=== PATIENT | female | born 1975 | race Caucasian/White ===

== ENCOUNTER → 2018-02-07 | Outpatient (CLI) | payer MEDICARE, MEDICAID ==
[~2018-02-07] MED LIST: AMOX500T2 PO; CPR500T PO; CYCL10TA9 PO; DIAZ-345 PO; HYDR-34 PO; HYDR25CA5 PO; LORA0.5T PO; METH4TAB PO; NAPR-243 PO; PRD20T PO; TRM50T PO
[2018-02-07 10:20] LABS: BASOPHILS % (AUTO) 0 % (0-10); EOSINOPHILS # (AUTO) 0.3 10^3/uL (0.0-0.3); EOSINOPHILS % (AUTO) 3 % (0-10); HEMATOCRIT 43 % (35-52); HEMOGLOBIN 14.8 G/DL (11.5-16.0); LYMPHOCYTES # (AUTO) 2.7 X 10^3 (1.0-4.0); LYMPHOCYTES % (AUTO) 29 % (12-44); MEAN CORPUSCULAR HEMOGLOBIN 31 PG (25-34); MEAN CORPUSCULAR HGB CONC 34 G/DL (32-36); MEAN CORPUSCULAR VOLUME 91 FL (80-99); MEAN PLATELET VOLUME 10.7 FL (7.4-10.4); MONOCYTES # (AUTO) 0.9 X 10^3 (0.0-1.0); MONOCYTES % (AUTO) 10 % (0-12); NEUTROPHILS # (AUTO) 5.5 X 10^3 (1.8-7.8); NEUTROPHILS % (AUTO) 58 % (42-75); PLATELET COUNT 273 10^3/uL (130-400); RED BLOOD COUNT 4.75 10^6/uL (4.35-5.85); RED CELL DISTRIBUTION WIDTH 11.9 % (10.0-14.5); WHITE BLOOD COUNT 9.5 10^3/uL (4.3-11.0)
[2018-02-07 10:40] LABS: ALANINE AMINOTRANSFERASE 22 U/L (0-55); ALBUMIN 4.3 GM/DL (3.2-4.5); ALKALINE PHOSPHATASE 61 U/L (40-136); BILIRUBIN,TOTAL 0.5 MG/DL (0.1-1.0); BUN/CREATININE RATIO 17; CALCIUM 9.4 MG/DL (8.5-10.1); CARBON DIOXIDE 29 MMOL/L (21-32); CHLORIDE 107 MMOL/L (98-107); CHOLESTEROL 216 MG/DL (< 200); CREATININE SERUM 0.75 MG/DL (0.60-1.30); GFR ESTIMATED > 60; GLUCOSE 92 MG/DL (70-105); HDL CHOLESTEROL 65 MG/DL (40-60); POTASSIUM 4.2 MMOL/L (3.6-5.0); SODIUM 140 MMOL/L (135-145); TOTAL PROTEIN 6.9 GM/DL (6.4-8.2); TRIGLYCERIDES 148 MG/DL (<150); VLDL CHOLESTEROL 30 MG/DL (5-40)
== END ==
LOC: LAB 09:56
PROVIDERS: ATTEND Registered Nurse
DX: M54.5 Low back pain (principal); G89.29 Other chronic pain; F32.9 Major depressive disorder, single episode, unspecified; K52.9 Noninfective gastroenteritis and colitis, unspecified; G62.9 Polyneuropathy, unspecified; M19.91 Primary osteoarthritis, unspecified site; F41.9 Anxiety disorder, unspecified; Z72.0 Tobacco use
CPT/HCPCS: 36415; 80053; 80061; 84443; 85025

== ENCOUNTER → 2018-12-01 | Outpatient (CLI) | payer MEDICARE, MEDICAID ==
[2018-12-01 11:10] LABS: BASOPHILS % (AUTO) 1 % (0-10); EOSINOPHILS # (AUTO) 0.2 10^3/uL (0.0-0.3); EOSINOPHILS % (AUTO) 2 % (0-10); HEMATOCRIT 42 % (35-52); HEMOGLOBIN 13.9 G/DL (11.5-16.0); LYMPHOCYTES # (AUTO) 2.5 X 10^3 (1.0-4.0); LYMPHOCYTES % (AUTO) 33 % (12-44); MEAN CORPUSCULAR HEMOGLOBIN 30 PG (25-34); MEAN CORPUSCULAR HGB CONC 33 G/DL (32-36); MEAN CORPUSCULAR VOLUME 91 FL (80-99); MEAN PLATELET VOLUME 10.6 FL (7.4-10.4); MONOCYTES # (AUTO) 0.6 X 10^3 (0.0-1.0); MONOCYTES % (AUTO) 8 % (0-12); NEUTROPHILS # (AUTO) 4.1 X 10^3 (1.8-7.8); NEUTROPHILS % (AUTO) 56 % (42-75); PLATELET COUNT 299 10^3/uL (130-400); RED BLOOD COUNT 4.59 10^6/uL (4.35-5.85); WHITE BLOOD COUNT 7.4 10^3/uL (4.3-11.0)
[2018-12-01 11:29] LABS: ALANINE AMINOTRANSFERASE 23 U/L (0-55); ALBUMIN 4.3 GM/DL (3.2-4.5); ALKALINE PHOSPHATASE 66 U/L (40-136); BILIRUBIN,TOTAL 0.4 MG/DL (0.1-1.0); BUN/CREATININE RATIO 7; CALCIUM 9.4 MG/DL (8.5-10.1); CARBON DIOXIDE 26 MMOL/L (21-32); CHLORIDE 106 MMOL/L (98-107); CHOLESTEROL 199 MG/DL (< 200); CREATININE SERUM 0.84 MG/DL (0.60-1.30); GFR ESTIMATED > 60; GLUCOSE 93 MG/DL (70-105); HDL CHOLESTEROL 54 MG/DL (40-60); POTASSIUM 4.3 MMOL/L (3.6-5.0); SODIUM 141 MMOL/L (135-145); TRIGLYCERIDES 130 MG/DL (<150); VLDL CHOLESTEROL 26 MG/DL (5-40)
== END ==
LOC: LAB 10:35
PROVIDERS: ATTEND Registered Nurse
DX: E78.5 Hyperlipidemia, unspecified (principal); M54.5 Low back pain; M79.2 Neuralgia and neuritis, unspecified; M25.539 Pain in unspecified wrist; M79.672 Pain in left foot; M79.671 Pain in right foot; R63.5 Abnormal weight gain; R06.2 Wheezing; Z72.0 Tobacco use
CPT/HCPCS: 36415; 80053; 80061; 84443; 85025; 86038; 86430

== ENCOUNTER 2021-08-03 19:27 | Emergency (ER) | payer MEDICARE, MEDICAID ==
[~2021-08-03] VITALS: Ht 147.3 cm; Wt 40.0 kg
--- NOTE | 2021-08-03 19:49 | ED Fall/Injury ---
General Stated Complaint: RIGHT SIDE PAIN Source: patient Exam Limitations: no limitations History of Present Illness Date Seen by Provider: Aug 03, 2021 Time Seen by Provider: 19:40 Initial Comments Patient to the ER by private conveyance from home with chief complaint of 2 days ago she was up on top of her washing machine trying to take care of her mouse problem when she lost her balance fell and hit her right ribs against the corner of the wash machine. She now has significant pain and difficulty taking deep breaths or moving. No previous injuries. She does smoke about half a pack cigarettes a day on average. No history of lung disease. She took naproxen 1 hour or 2 ago. No nausea loss of consciousness head injury. No blood thinners. Allergies and Home Medications Allergies Coded Allergies: bupropion (Unverified Allergy, Unknown, 09/18/15) clavulanic acid (Verified Allergy, Unknown, NAUSEA, 09/18/15) potassium clavulanate (Unverified Adverse Reaction, Intermediate, N/V, 04/26/12) erythromycin base (Unverified Adverse Reaction, Unknown, NAUSEA, 09/18/15) Patient Home Medication List Home Medication List Reviewed: Yes Amoxicillin (Amoxicillin) 500 Mg Tablet, 1,000 MG PO BID Prescribed by: SUJATHA MARTINEZ on 09/18/15 1349 Hydroxyzine Pamoate (Vistaril) 25 Mg Capsule, 1 EACH PO QID PRN Prescribed by: LACEY BURDEN on 09/05/13 204 Lorazepam (Ativan) 0.5 Mg Tablet, 10.5 MG PO NEEDED, (Reported) Entered as Reported by: KATELYN DEMPSEY on 02/05/12 0858 Methylprednisolone (Medrol) 4 Mg Tab.ds.pk, 4 MG PO UD Prescribed by: LAWANDA TSE on 07/16/15 1527 Naproxen (Naprosyn) 500 Mg Tablet, 1 EACH PO TID PRN Prescribed by: JAY JAY CHAUDHRY on 04/26/12 2341 Tramadol Hcl (Ultram) 50 Mg Tab, 50 MG PO Q4-6HOURS PRN Prescribed by: JAY JAY CHAUDHRY on 04/26/12 2341 Review of Systems Review of Systems Constitutional: No chills, No fever, No malaise Eyes: Denies Blindness, Denies Drainage Ears, Nose, Mouth, Throat: denies ear pain, denies ear discharge Respiratory: No cough; short of breath Cardiovascular: chest pain; No Hx of Intervention, No palpitations Gastrointestinal: No abdominal pain, No constipation, No diarrhea, No nausea Genitourinary: No discharge, No dysuria Musculoskeletal: No back pain, No joint pain All Other Systems Reviewed Negative Unless Noted: Yes Past Uyqxyrl-Lwtuzk-Ezsibi Hx Patient Social History Tobacco Use?: Yes Tobacco type used: Cigarettes Smoking Status: Current Everyday Smoker Use of E-Cig and/or Vaping dev: No Past Medical History Appendectomy, Section, Hysterectomy, Tubal Ligation Chronic Bronchitis Reproductive Disorders: No INBOUND CALL CENTER REPRESENTATIVE History: Hysterectomy Sexually Transmitted Disease: No Degenerate Disk Disease, Arthritis, Chronic Back Pain Anxiety, Depression Physical Exam Vital Signs Vital Signs - First Documented 08/03/21 19:49 Temp 36.7 Pulse 85 Resp 24 B/P (MAP) 134/91 (105) Pulse Ox 98 O2 Delivery Room Air Capillary Refill : Height, Weight, BMI Height: 4'9" Weight: 100lbs. oz. 45.779661rt; BMI Method:Stated General Appearance: WD/WN, mild distress HEENT: PERRL/EOMI, pharynx normal Neck: full range of motion, supple, normal inspection Cardiovascular: normal peripheral pulses, regular rate, rhythm Respiratory: lungs clear, normal breath sounds, no respiratory distress, no accessory muscle use, other (Right ribs without deformity, step-off flail chest or open wound. Very tender to light palpation.) Peripheral Pulses: 2+ Radial Pulses (R), 2+ Radial Pulses (L) Gastrointestinal: non tender, soft Neurologic/Psychiatric: alert, normal mood/affect Progress/Results/Core Measures Results/Orders My Orders Orders - GEOVANI MONSIVAIS Chest Pa/Lat (2 View) (08/03/21 19:45) Hydrocodone/Apap 5/325 Tablet (Lortab 5 (08/03/21 20:00) Incentive Spirometry Initial (08/03/21 19:52) Medications Given in ED Current Medications Medications Dose Ordered Sig/Sanjiv Route Start Time Stop Time Status Last Admin Dose Admin Acetaminophen/ Hydrocodone Bitart 1 ea ONCE ONCE PO 08/03/21 20:00 08/03/21 20:01 DC 08/03/21 20:07 1 EA Vital Signs/I&O 08/03/21 19:49 Temp 36.7 Pulse 85 Resp 24 B/P (MAP) 134/91 (105) Pulse Ox 98 O2 Delivery Room Air Progress Progress Note : Time: 19:48 Progress Note Rib x-rays ice pack. Declined anything for pain at this time. Diagnostic Imaging Diagonstic Imaging: Xray Plain Films/CT/US/NM/MRI: chest (Right rib) Comments NAME: YASH SANCHEZ [facility] REC#: [id number] PT STATUS: REG ER : 1975 PHYSICIAN: GEOVANI MONSIVAIS MD ADMIT DATE: 08/03/21/ER Draft Date of Exam:08/03/21 CHEST PA/LAT (2 VIEW) EXAMINATION: Chest 2 view. HISTORY: Fall right rib pain. COMPARISON: None available. FINDINGS: Heart size and pulmonary vasculature are normal. The lungs are clear without consolidation, pleural effusion or pneumothorax. The osseous structures are intact. IMPRESSION: No acute radiographic abnormality in the chest. Dictated on workstation # [id number] Dict: 08/03/212009 Trans: 08/03/212013 [facility] [id number] Interpreted by: JOHN MENDOZA DO Electronically signed by: Reviewed: Reviewed by Me Departure Impression Primary Impression: Contusion of rib on right side Qualified Codes: S20.211A - Contusion of right front wall of thorax, initial encounter Additional Impression: Fall Qualified Codes: W19.XXXA - Unspecified fall, initial encounter Disposition: 01 HOME, SELF-CARE Condition: Stable Departure-Patient Inst. Decision time for Depature: 20:19 Referrals: NO,LOCAL PHYSICIAN (PCP) Primary Care Physician EDIS GAR (Family) Primary Care Physician Patient Instructions: Bruised Rib (DC) Add. Discharge Instructions: While I cannot see any cracked ribs on your x-ray you certainly have bruised them and probably dislocated the soft rib from the bony rib on the right side. Typically this will get better on its own in about 2 to 4 weeks. Tylenol 1000 mg every 8 hours as necessary for pain. Ibuprofen 800 mg every 8 hours as necessary for pain or naproxen 2 tablets twice a day. Topical creams such as icy hot or Biofreeze can be helpful for pain. Splinting your chest with a pillow especially while coughing or sleeping can be helpful for comfort. If you are having severe breakthrough pain that is not allowing you to sleep then you may use hydrocodone 1 tablet every 6 hours. Hydrocodone will cause drowsiness and constipation and should not be mixed with alcohol. If you are having significant difficulty managing your symptoms then you can follow-up with your primary care doctor for help. Incentive spirometer 10 inhalations every hour while awake for the next week to prevent pneumonia. He should promptly return to the ER if you are having difficulty breathing, fevers especially 102.5 or other worrisome symptoms. Scripts Hydrocodone/Acetaminophen (Hydrocodone-Acetamin 5-325 mg) 1 Each Tablet 1 TAB PO Q6H PRN for PAIN-MODERATE (5-7), #14 TAB 0 Refills Prov: GEOVANI MONSIVAIS 08/03/21 Work/School Note: Work Release Form Date Seen in the Emergency Department: Aug 03, 2021 Return to Work: Aug 06, 2021 Restrictions: Need Release from Doctor Other Restrictions Listed Below: Do not lift push or pull more than 10 pounds until 08/11/2021 GEOVANI MONSIVAIS Aug 03, 2021 19:48
[2021-08-03] MEDS ORDERED: HYDROcodone/APAP 5 MG/325 MG (LORTAB) TAB PO ONE (20:00)
--- NOTE | 2021-08-03 20:15 | Diagnostic Imaging Report ---
EXAMINATION: Chest 2 view. HISTORY: Fall right rib pain. COMPARISON: None available. FINDINGS: Heart size and pulmonary vasculature are normal. The lungs are clear without consolidation, pleural effusion or pneumothorax. The osseous structures are intact. IMPRESSION: No acute radiographic abnormality in the chest. Dictated by: Dictated on workstation # [id number]
[2021-08-03] MEDS ORDERED: ACHD5005 PO (20:22)
[2021-08-03 20:32] VITALS: BP 123/76
== END 2021-08-03 20:32 | disposition home or self-care (01) ==
LOC: EDUNIT# 19:27 → ER 19:29
DX: S20.20XA Contusion of thorax, unspecified, initial encounter (principal); F41.9 Anxiety disorder, unspecified; F17.210 Nicotine dependence, cigarettes, uncomplicated; Z79.899 Other long term (current) drug therapy; W22.8XXA Striking against or struck by other objects, initial encounter
CPT/HCPCS: 71046; 94664

== ENCOUNTER 2023-02-02 19:52 | Emergency (ER) | payer MEDICARE, MEDICAID ==
[~2023-02-02] VITALS: Ht 145 cm; Wt 52.0 kg
[~2023-02-02 19:52] MED LIST changes: +ACHD5005 PO
--- NOTE | 2023-02-02 20:38 | Diagnostic Imaging Report ---
EXAMINATION: Left foot radiograph EXAM DATE: 02/02/2023 8:33 PM COMPARISON: None available. HISTORY: Mid foot pain TECHNIQUE: 3 views FINDINGS: There is a mildly displaced acute, oblique fracture of the left 5th metatarsal along the mid to distal aspect. No other acute fracture, dislocation, or destructive osseous process. The joint spaces are normal. There is mild soft tissue swelling along the lateral left foot. IMPRESSION: 1. Acute mildly displaced fracture of the distal left 5th metatarsal. Dictated by: Dictated on workstation # [id number]
--- NOTE | 2023-02-02 20:43 | ED Lower Extremity ---
General Chief Complaint: Lower Extremity Stated Complaint: WANTS SPLINT CHANGED Nursing Triage Note: PT AMB TO ED BY POV WITH C/O UNCOMFORTABLE SPLINT. PT WAS SEEN AT [facility] ON WEDNESDAY AND WAS SPLINTED FOR A 5TH METATARSAL FX. PT REPORTS SPLINT IS NOW DIGGING INTO HER FOOT AND VERY UNCOMFORTABLE. PT HAS NOT FOLLOWED UP WITH ORTHO. Source: patient Exam Limitations: no limitations (BRANDY CHI) History of Present Illness Date Seen by Provider: Feb 02, 2023 Time Seen by Provider: 20:38 Initial Comments Patient is a 47-year-old female presents ED with concerns for her splint of her left foot. She states she was seen at [facility] last Wednesday. She states she missed a step night rolling her left foot. She noted bruising and swelling but treated the foot like a sprain. she had a posterior splint placed secondary to a fracture of her fifth metatarsal. She has not followed up with orthopedic. Was given pain medication. She states the splint is digging in the side of her foot. She has been using crutches and not been bearing any weight. She said certain movements in her foot in the splint causes a sharp pain on the side. She denies taking the splint. Has been on pain medication hydrocodone but ran out of medication. Currently taking ibuprofen and Tylenol. (BRANDY CHI) Allergies and Home Medications Allergies Coded Allergies: bupropion (Unverified Allergy, Unknown, 09/18/15) clavulanic acid (Verified Allergy, Unknown, NAUSEA, 09/18/15) potassium clavulanate (Unverified Adverse Reaction, Intermediate, N/V, 04/26/12) erythromycin base (Unverified Adverse Reaction, Unknown, NAUSEA, 09/18/15) Patient Home Medication List Home Medication List Reviewed: Yes (BRANDY CHI) Amoxicillin (Amoxicillin) 500 Mg Tablet, 1,000 MG PO BID Prescribed by: SUJATHA MARTINEZ on 09/18/15 134 Hydrocodone/Acetaminophen (Hydrocodone-Acetamin 5-325 mg) 1 Each Tablet, 1 TAB PO Q6H PRN for PAIN-MODERATE (5-7) Prescribed by: GEOVANI MONSIVAIS on 08/03/212022 Hydroxyzine Pamoate (Vistaril) 25 Mg Capsule, 1 EACH PO QID PRN Prescribed by: LACEY BURDEN on 09/05/132041 Lorazepam (Ativan) 0.5 Mg Tablet, 10.5 MG PO NEEDED, (Reported) Entered as Reported by: KATELYN DEMPSEY on 02/05/12 0858 Methylprednisolone (Medrol) 4 Mg Tab.ds.pk, 4 MG PO UD Prescribed by: LAWANDA TSE on 07/16/15 1527 Naproxen (Naprosyn) 500 Mg Tablet, 1 EACH PO TID PRN Prescribed by: JAY JAY CHAUDHRY on 04/26/12 2341 Tramadol Hcl (Ultram) 50 Mg Tab, 50 MG PO Q4-6HOURS PRN Prescribed by: JAY JAY CHAUDHRY on 04/26/12 2341 Review of Systems Constitutional: No chills, No diaphoresis EENTM: No hearing loss, No ear pain, No blurred vision, No mouth pain, No mouth swelling Respiratory: No cough, No dyspnea on exertion Cardiovascular: No chest pain Gastrointestinal: No abdominal pain, No diarrhea, No nausea, No vomiting Genitourinary: No decreased output, No discharge Musculoskeletal: No back pain; joint pain, joint swelling Skin: change in color (BRANDY CHI) All Other Systems Reviewed Negative Unless Noted: Yes (BRANDY CHI) Past Uihpdcg-Mpesrg-Dugsht Hx Patient Social History Tobacco Use?: Yes Tobacco type used: Cigarettes Use of E-Cig and/or Vaping dev: No Substance use?: No Alcohol Use?: No Pt feels they are or have been: No (BRANDY CHI) Immunizations Up To Date Influenza Vaccine Up-to-Date: No; Not Current (BRANDY CHI) Past Medical History Surgery/Hospitalization HX: NEUROPATHY, DDD, FIBROMYALGIA Appendectomy, Section, Hysterectomy, Tubal Ligation Chronic Bronchitis 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 oz. 45.141363ts; 24.00 BMI Method:Stated General Appearance: WD/WN, no apparent distress HEENT: PERRL/EOMI, normal ENT inspection, TMs normal, pharynx normal Neck: non-tender, full range of motion, supple, normal inspection Cardiovascular: regular rate, rhythm, no edema, no gallop, no JVD Respiratory: chest non-tender, lungs clear, normal breath sounds, no respiratory distress Gastrointestinal: normal bowel sounds, non tender, soft Hips: bilateral hip non-tender, bilateral hip normal inspection, bilateral hip normal range of motion Knees: bilateral knee non-tender, bilateral knee normal inspection, bilateral knee normal range of motion Ankles: bilateral ankle non-tender, bilateral ankle normal inspection, bilateral ankle normal range of motion Feet: left foot pain (Tenderness to palpate left fifth metatarsal), left foot soft tissue tenderness, left foot swelling Neurologic/Tendon: normal sensation, normal motor functions, normal tendon functions 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, no motor/sensory deficits, alert, normal mood/affect, oriented x 3 Skin: other (Bruising swelling to left dorsum foot) (BRANDY CHI) Progress/Results/Core Measures Results/Orders Medications Given in ED Current Medications Medications Dose Ordered Sig/Sanjiv Route Start Time Stop Time Status Last Admin Dose Admin Acetaminophen/ Hydrocodone Bitart 1 ea ONCE ONCE PO 02/02/23 20:45 02/02/23 20:46 DC 02/02/23 21:03 1 EA (ISIDORO,JAY JAY K DO) Vital Signs/I&O 02/02/23 02/02/23 20:05 21:04 Temp 36.8 Pulse 85 85 Resp 18 18 B/P (MAP) 137/92 (107) 125/97 Pulse Ox 97 97 O2 Delivery Room Air Room Air (ISIDORO,JAY JAY K DO) Blood Pressure Mean: 107 Departure Communication (PCP) X-ray of the left foot shows Acute mildly displaced fracture of the distal left 5th metatarsal. Neurovascular intact. No evidence compartment syndrome. +2 dorsalis pedis, +2 posterior tibialis. Cap refill less than 2. Was given a dose of pain medication. Has not followed up with orthopedic. She states the splint is digging into the side of her foot. The splint material Ortho-Glass seems a bit large for her foot. Provided a smaller splint material. Really wrapped with an Davy wrap. She does have crutches. Orthopedic outpatient follow-up. Continue with pain medication as prescribed by your physician. Return precautions were discussed. (BRANDY CHI) Impression Primary Impression: Foot fracture Disposition: HOME, SELF-CARE Condition: Stable Departure-Patient Inst. Decision time for Depature: 20:42 (BRANDY CHI) Referrals: NO,LOCAL PHYSICIAN (PCP) Primary Care Physician EDIS GAR (Family) Primary Care Physician SILVER JARQUIN MD Patient Instructions: Foot Fracture ED ATTENDING PHYSICIAN NOTE: I WAS PHYSICALLY PRESENT ER PHYSICIAN, BUT I WAS NOT INVOLVED IN ANY DECISION MAKING OR ANY CARE OF THIS PATIENT AND I AM NOT COLLABORATING PHYSICIAN. (JAY JAY CHAUDHRY DO) BRANDY CHI Feb 02, 2023 20:43 JAY JAY CHAUDHRY DO Feb 02, 2023 23:10
[2023-02-02] MEDS ORDERED: HYDROcodone/APAP 5 MG/325 MG (LORTAB) TAB PO ONE (20:45)
[2023-02-02 21:04] VITALS: BP 125/97
== END 2023-02-02 21:10 | disposition home or self-care (01) ==
LOC: EDUNIT# 19:52 → ER 19:55
DX: S92.352A Displaced fracture of fifth metatarsal bone, left foot, initial encounter for closed fracture (principal); F17.210 Nicotine dependence, cigarettes, uncomplicated; Z28.310 Unvaccinated for COVID-19; X50.1XXA Overexertion from prolonged static or awkward postures, initial encounter
CPT/HCPCS: 29515; 73630

== ENCOUNTER → 2023-02-11 | Outpatient (CLI) | payer MEDICARE, MEDICAID | LOC: ORTHO 13:21 | PROVIDERS: ATTEND Orthopaedic Surgery | DX: S92.352A Displaced fracture of fifth metatarsal bone, left foot, initial encounter for closed fracture (principal); X58.XXXA Exposure to other specified factors, initial encounter | CPT/HCPCS: 99203 ==

== ENCOUNTER → 2023-03-11 | Outpatient (CLI) | payer MEDICARE, MEDICAID ==
--- NOTE | 2023-03-11 13:11 | Diagnostic Imaging Report ---
EXAMINATION: Left foot radiographs, 3 views. COMPARISON: Left foot radiographs February 02, 2023. HISTORY: 47-year-old female, follow-up fracture of the fifth metatarsal. FINDINGS: There is a redemonstrated comminuted displaced fracture of the distal diaphysis and distal metaphysis of the fifth metatarsal. There is no change in fracture alignment. There is no identified interval bony callus bridging or prominent periosteal reaction. There are persistent well visualized fracture lines. There is no identified joint space loss or bone erosion. IMPRESSION: 1. Grossly unchanged alignment and overall appearance of the fifth metatarsal fracture without interval notable healing response. Dictated by: Dictated on workstation # [id number]
== END ==
LOC: ORTHO 11:29
PROVIDERS: ATTEND Orthopaedic Surgery
DX: S92.352D Displaced fracture of fifth metatarsal bone, left foot, subsequent encounter for fracture with routine healing (principal); X58.XXXD Exposure to other specified factors, subsequent encounter
CPT/HCPCS: 73630; 99213

== ENCOUNTER → 2023-05-04 | Outpatient (CLI) | payer MEDICARE, MEDICAID ==
--- NOTE | 2023-05-04 17:02 | Diagnostic Imaging Report ---
EXAMINATION: Left foot 3 views HISTORY: Fracture COMPARISON: 03/11/2023 FINDINGS: There is a healing fracture of the left fifth metatarsal. No other fracture is seen. Alignment is normal. IMPRESSION: 1. Healing fracture left fifth metatarsal. Dictated by: Dictated on workstation # [id number]
== END ==
LOC: ORTHO 13:53
PROVIDERS: ATTEND Orthopaedic Surgery
DX: S92.352D Displaced fracture of fifth metatarsal bone, left foot, subsequent encounter for fracture with routine healing (principal); X58.XXXD Exposure to other specified factors, subsequent encounter
CPT/HCPCS: 73630; 99213

== ENCOUNTER 2023-10-10 17:08 | Emergency (ER) | payer MEDICARE, MEDICAID ==
[2023-10-10 17:15] VITALS: BP 147/101
[2023-10-10] MEDS ORDERED: HYDROcodone/ACETAMINOPHEN 5 MG/325 MG TABLET PO ONE (18:00)
[2023-10-10] MEDS ORDERED: LIDOCAINE 2% VISCOUS 15 ML UDC PO ONE (18:00)
[2023-10-10] MEDS ORDERED: AMOXICILLIN 500 MG CAPSULE PO ONE (18:00)
[2023-10-10] MEDS ORDERED: ACHD5005 PO ×2 (18:11→18:42)
[2023-10-10] MEDS ORDERED: AMOX500C2 PO ×2 (18:11→18:42)
--- NOTE | 2023-10-10 18:12 | ED EENT ---
History of Present Illness General Chief Complaint: Dental Problems/Pain Stated Complaint: MOUTH PAIN AFTER TOOTH EXTRACTIONS Nursing Triage Note: PT C/O PAIN, PT STATES HAS BEEN OUT OF PAIN MEDS FOR 2 DAYS. PT HAS HAD ALL TEETH PULLED ON 10/04/23. Source: patient, family Exam Limitations: no limitations History of Present Illness Date Seen by Provider: Oct 10, 2023 Time Seen by Provider: 17:37 Initial Comments Lily is a 48 year old woman who presents to the ER with uncontrolled post op pain after having full dental extractions performed 1 week ago. She has been out of pain medications for 2 days and reports extreme pain. Her dentist is referred her to an oral surgeon out of town. She has not contacted the surgeon. She denies fever or chills. She has tried Aleve without sufficient relief. Allergies and Home Medications Allergies Coded Allergies: bupropion (Unverified Allergy, Unknown, 09/18/15) clavulanic acid (Verified Allergy, Unknown, NAUSEA, 09/18/15) potassium clavulanate (Unverified Adverse Reaction, Intermediate, N/V, 04/26/12) erythromycin base (Unverified Adverse Reaction, Unknown, NAUSEA, 09/18/15) Patient Home Medication List Home Medication List Reviewed: Yes Amoxicillin (Amoxicillin) 500 Mg Tablet, 1,000 MG PO BID Prescribed by: SUJATHA MARTINEZ on 09/18/15 134 Amoxicillin (Amoxicillin) 500 Mg Capsule, 500 MG PO TID Prescribed by: SUJATHA MARTINEZ on 10/10/231841 Hydrocodone/Acetaminophen (Hydrocodone-Acetamin 5-325 mg) 1 Each Tablet, 1 TAB PO Q6H PRN for PAIN-MODERATE (5-7) Prescribed by: GEOVANI MONSIVAIS on 08/03/212022 Hydrocodone/Acetaminophen (Hydrocodone-Acetamin 5-325 mg) 5 Mg-325 Mg Tablet, 1 TAB PO Q4H PRN for PAIN BREAKTROUGH Prescribed by: SUJATHA MARTINEZ on 10/10/231842 Hydroxyzine Pamoate (Vistaril) 25 Mg Capsule, 1 EACH PO QID PRN Prescribed by: LACEY BURDEN on 09/05/132041 Lorazepam (Ativan) 0.5 Mg Tablet, 10.5 MG PO NEEDED, (Reported) Entered as Reported by: KATELYN DEMPSEY on 02/05/12 0858 Methylprednisolone (Medrol) 4 Mg Tab.ds.pk, 4 MG PO UD Prescribed by: LAWANDA TSE on 07/16/15 1527 Naproxen (Naprosyn) 500 Mg Tablet, 1 EACH PO TID PRN Prescribed by: JAY JAY CHAUDHRY on 04/26/12 2341 Tramadol Hcl (Ultram) 50 Mg Tab, 50 MG PO Q4-6HOURS PRN Prescribed by: JAY JAY CHAUDHRY on 04/26/12 2341 Review of Systems Review of Systems Constitutional: no symptoms reported Eyes: No Symptoms Reported Ears: No Symptoms Reported Nose: no symptoms reported Mouth: see HPI Throat: no symptoms reported Respiratory: no symptoms reported Cardiovascular: no symptoms reported Gastrointestinal: no symptoms reported Musculoskeletal: no symptoms reported Skin: no symptoms reported Neurological: No Symptoms Reported Hematologic/Lymphatic: No Symptoms Reported Immunological/Allergic: no symptoms reported Past Mpgaqbv-Adgrah-Hhhrni Hx Patient Social History Tobacco Use?: No Substance use?: No Alcohol Use?: No Pt feels they are or have been: No Past Medical History Surgery/Hospitalization HX: NEUROPATHY, DDD, FIBROMYALGIA Surgeries: Yes (complete dental extraction) Appendectomy, Section, Hysterectomy, Tubal Ligation Respiratory: Yes Chronic Bronchitis Cardiac: Yes Neurological: Yes : No 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 oz. 45.328632vq; BMI Method:Stated General Appearance: WD/WN, moderate distress Nose: normal inspection Mouth/Throat: pharynx normal, other (healing extraction sites with minimal inflammation. No drainage or active bleeding. 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 Anesthetic gauze pads soaked in viscous lidocaine were provided. Prescriptions provided. See discharge instructions for further discussion. Departure Impression Primary Impression: Postoperative pain Disposition: HOME, SELF-CARE Condition: Improved Departure-Patient Inst. Decision time for Depature: 18:08 Referrals: JERRY,LOCAL PHYSICIAN (PCP) Primary Care Physician EDIS GAR (Family) Primary Care Physician Patient Instructions: Postoperative Pain (DC) Add. Discharge Instructions: Follow instructions previously given by your oral surgeon. Complete antibiotics as prescribed. You may continue to use an ibuprofen, but you must not exceed recommended doses. You may either use your prescribed ibuprofen 800 mg every 8 hours or dzmn-[id number] ibuprofen 600 mg every 6 hours. Use your hydrocodone as prescribed. You may use the anesthetic gauze pads draped over your gums to help provide topical numbing. Be very careful eating and drinking after using these gauze pads as they will numb your lips, gums, tongue, and throat. Do NOT fall asleep with gauze pads in your mouth. This may present a choking hazard. Contact your oral surgeon tomorrow morning to discuss your problems with persistent pain. Return to the emergency room if you have worsening symptoms or develop new symptoms such as fever. All discharge instructions reviewed with patient and/or family. Voiced understanding. Scripts Hydrocodone/Acetaminophen (Hydrocodone-Acetamin 5-325 mg) 5 Mg-325 Mg Tablet 1 TAB PO Q4H PRN for PAIN BREAKTROUGH, #12 TAB Prov: SUJATHA MONROE MD 10/10/23 Amoxicillin (Amoxicillin) 500 Mg Capsule 500 MG PO TID, #21 CAP 0 Refills Prov: SUJATHA MONROE MD 10/10/23 SUJATHA MONROE MD Oct 10, 2023 18:12
== END 2023-10-10 18:19 | disposition home or self-care (01) ==
LOC: EDUNIT# 17:08 → ER 17:10
DX: G89.18 Other acute postprocedural pain (principal); Z88.1 Allergy status to other antibiotic agents
CPT/HCPCS: 99282